=== PATIENT | male | born 1950 | race Caucasian/White ===

== ENCOUNTER → 2016-02-16 | Outpatient (CLI) | payer BC ==
[~2016-02-16] MED LIST: ALLO100T PO; ASPI325T39 PO; CLB/200 PO; HYDR-5688 PO; INDO-24 PO; LEVO-519 PO; LISI-729 PO; PRED20TA PO; SYN112 PO; SYN125 PO
--- NOTE | 2016-02-16 15:03 | DIAGNOSTIC IMAGING REPORT ---
ANKLE BRACHIAL INDEX LIMITED ULTRASOUND CLINICAL HISTORY: Hypertension. COMPARISON STUDY: None. FINDINGS: The bilateral ankle brachial indices measured with the posterior tibial and dorsalis pedis arteries was demonstrated to be 1.1. IMPRESSION: Bilateral ankle brachial indices was 1.1 Electronically signed by: Luis Noel M.D. 02/16/2016 3:01 PM Dictated Date/Time: 02/16/2016 3:00 PM
== END | disposition home or self-care (01) ==
LOC: C.ULTR 13:31
PROVIDERS: ATTEND Family Medicine
DX: I10 Essential (primary) hypertension (principal)

== ENCOUNTER 2016-02-29 16:23 | Emergency (ER) | payer BC ==
[~2016-02-29] VITALS: Ht 182.9 cm; Wt 100.3 kg
[~2016-02-29 16:23] MED LIST changes: -CLB/200 PO; -HYDR-5688 PO; -INDO-24 PO; -PRED20TA PO; -SYN112 PO
[2016-02-29 16:27] VITALS: TEMP 36.6; Ht 182.9 cm; Wt 100.3 kg
[2016-02-29] MEDS ORDERED: HYDR-5688 PO (17:20)
[2016-02-29] MEDS ORDERED: SYN112 PO (17:20)
[2016-02-29] MEDS ORDERED: INDO-24 PO (17:20)
[2016-02-29] MEDS ORDERED: CLB/200 PO (17:20)
[2016-02-29 17:36] LABS: BASO % 0.3 %; BASO ABS # 0.02 K/uL (0-0.2); COMPLETE YES; EOS % 2.4 %; HEMATOCRIT 41.7 % (42-52); IG% 0.2 %; LYMPH % 21.9 %; LYMPH ABS # 1.29 K/uL (1.2-3.4); MEAN CELL VOLUME 84.9 fL (80-100); MEAN CORPUSCULAR HEMOGLOBIN 31.2 pg (25-34); MEAN CORPUSCULAR HGB CONC 36.7 g/dl (32-36); MONO % 9.2 %; PLATELET COUNT 145 K/uL (130-400); RED BLOOD COUNT 4.91 M/uL (4.7-6.1); WHITE BLOOD COUNT 5.89 K/uL (4.8-10.8)
[2016-02-29 17:47] LABS: URINE APPEARANCE CLEAR (CLEAR); URINE BILIRUBIN NEG (NEG); URINE COLOR YELLOW; URINE NITRITE NEG (NEG); URINE PH 5.5 (4.5-7.5); UROBILINOGEN NEG (NEG); ZZUR CULT IF INDIC CLEAN CATCH NO
[2016-02-29 17:58] LABS: ALT/SGPT 31 U/L (12-78); BLOOD UREA NITROGEN 18 mg/dl (7-18); BUN/CREATININE RATIO 18.9 (10-20); C-REACTIVE PROTEIN < 0.29 mg/dl (0-0.29); CALCIUM 9.5 mg/dl (8.5-10.1); CARBON DIOXIDE 22 mmol/L (21-32); CHLORIDE 107 mmol/L (98-107); CREATININE 0.95 mg/dl (0.60-1.40); GLUCOSE 99 mg/dl (70-99); POTASSIUM 3.9 mmol/L (3.5-5.1); SODIUM 139 mmol/L (136-145)
[2016-02-29 18:02] LABS: ALB/GLOB RATIO 1.5 (0.9-2); ALKALINE PHOSPHATASE 84 U/L (45-117); AST/SGOT 20 U/L (15-37)
[2016-02-29 18:06] LABS: MANUAL MICROSCOPIC REQUIRED? NO; REVIEW REQ? NO
--- NOTE | 2016-02-29 19:19 | DIAGNOSTIC IMAGING REPORT ---
LUMBAR SPINE MRI HISTORY: low back pain, bilateral leg numbness TECHNIQUE: Multiplanar multisequence MRI of the lumbar spine was performed without the use of contrast. COMPARISON: None. FINDINGS: For the purpose of the report the L5-S1 disc space will be located on axial image 27 of 40. Mild levoscoliosis which could be positional. Alignment is intact. There is moderate disc space narrowing at L1-L2. Mild disc space narrowing at L2-L3 and L3-L4. There is diffuse disc desiccation. Small endplate osteophytes seen within the upper to mid lumbar spine. The common terminates at the L2 level. There are small cartilage cysts at the S2 level. Moderate facet degenerative changes at L4-L5 and L5-S1. Paraspinal soft tissues are unremarkable. L1-L2: Small broad-based posterior disc bulge without significant central canal or neural foraminal narrowing. L2-L3: Small broad-based posterior disc bulge resulting in mild central canal narrowing. No significant neural foraminal narrowing. L3-L4: Small broad-based posterior disc bulge with ligamentum and facet hypertrophy resulting in minimal central canal and mild right-sided neural foraminal narrowing. L4-L5: Small broad-based posterior disc bulge with facet hypertrophy resulting in mild bilateral neural foraminal narrowing. There is no significant central canal narrowing. L5-S1: No significant central canal or left-sided neural foraminal narrowing. There is mild right-sided neural foraminal narrowing. Within the right posterior epidural space there is a 6 x 3 mm T2 hyperintense focus. This appears to connect to the right L5 facet and likely represents a small synovial cyst. This does not result significant mass effect along the thecal sac. IMPRESSION: 1. Multilevel lumbar spondylosis resulting in minimal to mild mild central canal narrowing as described above. This is most pronounced at the L2-L3 level. 2. Small cystic focus within the right posterior epidural space at the L5-S1 level. This likely represents a synovial cyst. This does not result in significant mass effect along the thecal sac. 3. Multilevel bilateral neural foraminal narrowing as described above. 4. No fracture or subluxation within the lumbar spine. Electronically signed by: Luis Noel M.D. 02/29/2016 7:17 PM Dictated Date/Time: 02/29/2016 7:06 PM
[2016-02-29] MEDS ORDERED: PRED20TA PO (19:51)
--- NOTE | 2016-02-29 19:53 | EMERGENCY ROOM VISIT NOTE ---
History First contact with patient: 16:42 Chief Complaint: LEG PAIN,LEG INJURY Stated Complaint: LEG PAIN, NUMBNESS IN LEGS/FEET History of Present Illness The patient is a 65 year old male who presents to the Emergency Room with complaints of leg pain and numbness. The patient reports he has had symptoms over the past 2 months. The patient reports that he has had low back pain with radiation into the legs. He has had numbness in his legs and feet which have been progressively worsening over the past few months. He has seen his primary care provider in orthopedics regarding this. He has had ultrasound for peripheral arterial disease which was okay per patient. He reports he has also had abdominal ultrasound, right hip x-ray, and labs all of which were okay. he reports he has had one episode of night sweats recently. He states there is a lump on the lower back which he is unsure if it is related to the symptoms. He also reports a lymph node of the right leg. He has been to the chiropractor as well. He denies any urinary retention, urinary incontinence, saddle anesthesias or fevers. He denies abdominal pain, nausea, vomiting or urinary symptoms. Review of Systems A complete 10-point Review of Systems was discussed with the patient, with pertinent positives and negatives listed in the History of Present Illness. All remaining Review of Systems questions can be considered negative unless otherwise specified. Social History Smoking Status: Never Smoker Current/Historical Medications Scheduled Allopurinol (Zyloprim), 200 MG PO QAM Celecoxib (CeleBREX), 200 MG PO DAILY Levothyroxine Sodium (Synthroid), 125 MCG PO Q2D Levothyroxine Sodium (Synthroid), 112 MCG PO Q2D Lisinopril (Zestril), 5 MG PO QAM Prednisone (Prednisone), 0 PO DAILY Scheduled PRN Hydrocodone/Acetaminophen 5MG/325MG ([place] 5MG/325MG), 0.5-1 TABLET PO UD PRN for Pain Indomethacin (Indocin), 50 MG PO TID PRN for Gout Pain Allergies Coded Allergies: No Known Allergies (Unverified , 02/29/16) Physical Exam Vital Signs Date Time Temp Pulse Resp B/P Pulse Ox O2 Delivery O2 Flow Rate FiO2 02/29/16 20:08 74 20 150/80 97 02/29/16 19:15 68 20 155/88 96 Room Air 02/29/16 16:27 36.6 85 18 164/98 96 Room Air Physical Exam VITALS: Vitals are noted on the nurse's note and reviewed by myself. Vital signs stable. GENERAL: This is a 65-year-old male, in no acute distress, nondiaphoretic, well- developed well-nourished. SKIN: Capillary reflex less than 2 seconds. HEART: Regular rate and rhythm without murmurs gallops or rubs. LUNGS: Clear to auscultation bilaterally without wheezes, rales or rhonchi. ABDOMEN: Positive bowel sounds x 4. Soft, nontender, without masses or organomegaly. MUSCULOSKELETAL: No tenderness to palpation of the lumbar spine. Full range of motion of bilateral lower extremities. Strength 5/5. Negative straight leg raise test. NEURO: Patient was alert and oriented to person place and time. Normal sensation to light and sharp touch. Deep tendon reflexes 2+ throughout. No focal neurological deficits. Medical Decision & Procedures ER Provider Diagnostic Interpretation: LUMBAR SPINE MRI HISTORY: low back pain, bilateral leg numbness TECHNIQUE: Multiplanar multisequence MRI of the lumbar spine was performed without the use of contrast. COMPARISON: None. FINDINGS: For the purpose of the report the L5-S1 disc space will be located on axial image 27 of 40. Mild levoscoliosis which could be positional. Alignment is intact. There is moderate disc space narrowing at L1-L2. Mild disc space narrowing at L2-L3 and L3-L4. There is diffuse disc desiccation. Small endplate osteophytes seen within the upper to mid lumbar spine. The common terminates at the L2 level. There are small cartilage cysts at the S2 level. Moderate facet degenerative changes at L4-L5 and L5-S1. Paraspinal soft tissues are unremarkable. L1-L2: Small broad-based posterior disc bulge without significant central canal or neural foraminal narrowing. L2-L3: Small broad-based posterior disc bulge resulting in mild central canal narrowing. No significant neural foraminal narrowing. L3-L4: Small broad-based posterior disc bulge with ligamentum and facet hypertrophy resulting in minimal central canal and mild right-sided neural foraminal narrowing. L4-L5: Small broad-based posterior disc bulge with facet hypertrophy resulting in mild bilateral neural foraminal narrowing. There is no significant central canal narrowing. L5-S1: No significant central canal or left-sided neural foraminal narrowing. There is mild right-sided neural foraminal narrowing. Within the right posterior epidural space there is a 6 x 3 mm T2 hyperintense focus. This appears to connect to the right L5 facet and likely represents a small synovial cyst. This does not result significant mass effect along the thecal sac. IMPRESSION: 1. Multilevel lumbar spondylosis resulting in minimal to mild mild central canal narrowing as described above. This is most pronounced at the L2-L3 level. 2. Small cystic focus within the right posterior epidural space at the L5-S1 level. This likely represents a synovial cyst. This does not result in significant mass effect along the thecal sac. 3. Multilevel bilateral neural foraminal narrowing as described above. 4. No fracture or subluxation within the lumbar spine. Laboratory Results 02/29/16 17:10 Red Blood Count 4.91, Mean Corpuscular Volume 84.9, Mean Corpuscular Hemoglobin 31.2, Mean Corpuscular Hemoglobin Concent 36.7, Mean Platelet Volume 9.0, Neutrophils (%) (Auto) 66.0, Lymphocytes (%) (Auto) 21.9, Monocytes (%) (Auto) 9.2, Eosinophils (%) (Auto) 2.4, Basophils (%) (Auto) 0.3, Neutrophils # (Auto) 3.89, Lymphocytes # (Auto) 1.29, Monocytes # (Auto) 0.54, Eosinophils # (Auto) 0.14, Basophils # (Auto) 0.02 02/29/16 17:10 Test 02/29/16 17:10 02/29/16 17:15 White Blood Count 5.89 K/uL (4.8-10.8) Red Blood Count 4.91 M/uL (4.7-6.1) Hemoglobin 15.3 g/dL (14.0-18.0) Hematocrit 41.7 % (42-52) Mean Corpuscular Volume 84.9 fL (80-100) Mean Corpuscular Hemoglobin 31.2 pg (25-34) Mean Corpuscular Hemoglobin Concent 36.7 g/dl (32-36) Platelet Count 145 K/uL (130-400) Mean Platelet Volume 9.0 fL (7.4-10.4) Neutrophils (%) (Auto) 66.0 % Lymphocytes (%) (Auto) 21.9 % Monocytes (%) (Auto) 9.2 % Eosinophils (%) (Auto) 2.4 % Basophils (%) (Auto) 0.3 % Neutrophils # (Auto) 3.89 K/uL (1.4-6.5) Lymphocytes # (Auto) 1.29 K/uL (1.2-3.4) Monocytes # (Auto) 0.54 K/uL (0.11-0.59) Eosinophils # (Auto) 0.14 K/uL (0-0.5) Basophils # (Auto) 0.02 K/uL (0-0.2) RDW Standard Deviation 42.3 fL (36.4-46.3) RDW Coefficient of Variation 13.7 % (11.5-14.5) Immature Granulocyte % (Auto) 0.2 % Immature Granulocyte # (Auto) 0.01 K/uL (0.00-0.02) Erythrocyte Sedimentation Rate 5 mm/hr (0-14) Anion Gap 10.0 mmol/L (3-11) Est Creatinine Clear Calc Drug Dose 97.6 ml/min Estimated GFR () 98.3 Estimated GFR (Non- 84.9 BUN/Creatinine Ratio 18.9 (10-20) Calcium Level 9.5 mg/dl (8.5-10.1) Total Bilirubin 0.6 mg/dl (0.2-1) Aspartate Amino Transf (AST/SGOT) 20 U/L (15-37) Alanine Aminotransferase (ALT/SGPT) 31 U/L (12-78) Alkaline Phosphatase 84 U/L (45-117) C-Reactive Protein < 0.29 mg/dl (0-0.29) Total Protein 7.1 gm/dl (6.4-8.2) Albumin 4.3 gm/dl (3.4-5.0) Globulin 2.8 gm/dl (2.5-4.0) Albumin/Globulin Ratio 1.5 (0.9-2) Urine Color YELLOW Urine Appearance CLEAR (CLEAR) Urine pH 5.5 (4.5-7.5) Urine Specific [place] 1.020 (1.000-1.030) Urine Protein NEG (NEG) Urine Glucose (UA) NEG (NEG) Urine Ketones TRACE (NEG) Urine Occult Blood NEG (NEG) Urine Nitrite NEG (NEG) Urine Bilirubin NEG (NEG) Urine Urobilinogen NEG (NEG) Urine Leukocyte Esterase NEG (NEG) Medical Decision Differential diagnosis includes cauda equina syndrome, cord compression, epidural abscess, osteomyelitis, malignancy, among others. The patient was evaluated as above. Labs were drawn and IV access was obtained. Imaging studies were performed and read by radiology as above. The patient declined analgesics. The patient was reassessed multiple times during their stay in the emergency department and remained in stable condition. The patient is a 65-year-old male who presents today complaining of low back pain with radiation into the legs. Labs revealed no leukocytosis, anemia or concerning electrolyte abnormalities. Inflammatory markers were not elevated. Urinalysis was not suggestive of infection. As the patient has had progressively worsening symptoms over the past 2 months and subjective complaints of numbness, an MRI was performed. This was read by radiology and did show some spondylosis, but no significant disease. The patient was encouraged to follow-up with orthopedics. He will be placed on a prednisone taper. He will return for worsening symptoms. Based on the patient's presentation, lab results, and imaging studies, I feel the patient is stable for outpatient treatment. The patient was independently evaluated by Dr. Gross, ED attending physician, who agreed with my assessment and treatment plan. Discharge instructions were reviewed with the patient. The patient verbalized understanding of my assessment and treatment plan and was discharged home in good condition. Impression Primary Impression: Lumbar radiculopathy Departure Information Dispostion Home / Self-Care Condition GOOD Prescriptions Prednisone (Prednisone) 20 Mg Tab 0 PO DAILY, #18 TAB 3 DAILY FOR 3 DAYS, THEN 2 DAILY FOR 3 DAYS, THEN 1 DAILY FOR 3 DAYS. Prov: Mabel Kothari ., DENNISE 02/29/16 Referrals Everett Anand DO (PCP) Patient Instructions [facility] Additional Instructions You have been prescribed Prednisone. This is a steroid which will help decrease your inflammation. Take this medicine as prescribed. Take the ENTIRE 9 day course. It is best to take steroids early in the morning as PM dosing can affect your sleeping patterns. For pain control, you can use the following [id number] medicines (if >12 yo): - Regular strength (325mg/tab) Tylenol (acetaminophen) 2 tabs every 4-6 hours as needed. Do not exceed 12 tablets in a 24 hour period. Avoid taking more than 4 grams (4000 mg) of Tylenol per day. This includes any other sources of acetaminophen you may take on a regular basis. - Regular strength (200 mg/tab) Advil (ibuprofen) 1-2 tabs every 4-6 hours as needed. Do not exceed a dose of 3200 mg per day. Follow-up with your primary care provider within one week for further evaluation/referrals. Return to the emergency department with any bowel/bladder incontinence, worsening numbness of the legs, or any other new/concerning symptoms.
[2016-02-29 20:08] VITALS: BP 150/80; PULSE 74; O2SAT 97
== END 2016-02-29 20:08 | disposition home or self-care (01) ==
LOC: C.EDB 16:24 → C.EDC 20:08
DX: M54.16 Radiculopathy, lumbar region (principal); M41.9 Scoliosis, unspecified; M48.06 Spinal stenosis, lumbar region; M47.26 Other spondylosis with radiculopathy, lumbar region

== ENCOUNTER → 2016-10-01 | Outpatient (CLI) | payer BC ==
[~2016-10-01] MED LIST changes: -ASPI325T39 PO; +CLB/200 PO; +HYDR-5688 PO; +INDO-24 PO; -LEVO-519 PO; +SYN112 PO
--- NOTE | 2016-10-01 09:40 | DIAGNOSTIC IMAGING REPORT ---
RIGHT WRIST MIN 3 VIEWS ROUTINE CLINICAL HISTORY: 66 years-old Male presenting with right wrist pain. TECHNIQUE: Frontal, bilateral oblique, and lateral views of the right wrist were obtained. COMPARISON: None. FINDINGS: Degenerative changes of the distal radial ulnar joint. Mild joint space narrowing of the radiocarpal articulation. Intercarpal articulations normal. No acute fracture or subluxation. Regional soft tissues within normal limits. IMPRESSION: No acute fracture or subluxation. Degenerative changes as above. Electronically signed by: Adam Pandya M.D. 10/01/2016 9:39 AM Dictated Date/Time: 10/01/2016 9:37 AM
== END | disposition home or self-care (01) ==
LOC: C.RADBC 09:16
PROVIDERS: ATTEND Family Medicine
DX: M25.531 Pain in right wrist (principal)